=== PATIENT | female | born 1955 | race Caucasian/White ===

== ENCOUNTER → 2017-10-09 | Outpatient (CLI) | payer OTHER | LOC: BRMIMAGING 09:08 | PROVIDERS: ATTEND Internal Medicine Gastroenterology | DX: R74.0 Nonspecific elevation of levels of transaminase and lactic acid dehydrogenase [LDH] (principal) | CPT/HCPCS: 76705-PO ==

== ENCOUNTER → 2018-05-18 | Outpatient (CLI) | payer OTHER | LOC: FIMAGING 16:59 | PROVIDERS: ATTEND Internal Medicine Hematology & Oncology | DX: R10.31 Right lower quadrant pain (principal); K80.20 Calculus of gallbladder without cholecystitis without obstruction ==

== ENCOUNTER → 2018-09-29 | Outpatient (CLI) | payer OTHER | LOC: CIMAGING 16:28 | PROVIDERS: ATTEND Family Medicine | DX: M17.0 Bilateral primary osteoarthritis of knee (principal) | CPT/HCPCS: 73562-PO; 73565-PO ==

== ENCOUNTER → 2018-10-22 | Outpatient (CLI) | payer OTHER | LOC: FIMAGING 18:03 | PROVIDERS: ATTEND Family Medicine | DX: S83.241A Other tear of medial meniscus, current injury, right knee, initial encounter (principal); S83.281A Other tear of lateral meniscus, current injury, right knee, initial encounter; M94.8X8 Other specified disorders of cartilage, other site; M25.461 Effusion, right knee ==

== ENCOUNTER → 2018-12-14 | Outpatient (CLI) | payer OTHER | LOC: CIMAGING 11:42 | PROVIDERS: ATTEND Family Medicine | DX: S42.295D Other nondisplaced fracture of upper end of left humerus, subsequent encounter for fracture with routine healing (principal) | CPT/HCPCS: 73060-PO ==